=== PATIENT | female | born 1950 | race Caucasian/White ===

== ENCOUNTER 2021-03-14 07:23 | Day surgery (SDC) | payer MEDICARE, BC, SELFPAY ==
--- NOTE | 2021-03-14 07:47 | W.ANESPRE ---
General Info Date of Service Date Performed: 03/14/21 Height: 5 ft 6 in Weight: 102.058 kg Body Mass Index (BMI): 36.3 Surgical Procedure: Operation Date: 03/14/21 09:10 Proposed Procedures Side Surgeon p Cataract Extraction with IOL Implant Right Jason Orosco MD Meds Allergies and Home Medications Allergies Allergy/AdvReac Type Severity Reaction Status Date / Time aspirin Allergy Intermediate Skin Rash Unverified 03/12/21 11:53 codeine AdvReac Intermediate Nausea Unverified 03/12/21 11:53 fentanyl AdvReac Intermediate Other (See Unverified 03/12/21 11:53 Comment) hydromorphone [From Dilaudid] AdvReac Intermediate Other (See Unverified 03/12/21 11:53 Comment) morphine AdvReac Intermediate Other (See Unverified 03/12/21 11:53 Comment) Home Medication Medication Instructions Recorded cyanocobalamin (vitamin B-12) 1,000 mcg PO DAILY 03/12/21 [Vitamin B-12] esomeprazole magnesium 40 mg PO QAM 03/12/21 hydroxychloroquine 400 mg PO DAILY 03/12/21 leflunomide 20 mg PO HS 03/12/21 lorazepam 0.5 mg PO DAILY PRN 03/12/21 metoprolol succinate 12.5 mg PO DAILY 03/12/21 naloxone [Narcan] 1 spray INTRANASAL DIRECTED PRN 03/12/21 Current Visit Medications: Current Medications Generic Name Dose Route Start Last Admin Trade Name Freq PRN Reason Stop Dose Admin Acetaminophen 1,000 mg 03/14/21 06:00 Acetaminophen 500 Mg Tab PO Q4H PRN PRN Miscellaneous Medication 0 ml 03/14/21 06:00 Prednisolone 1%, Moxifloxacin 0.5%, Nepafenac 0.1% 5ml Btl OD DIRECTED KELLI Miscellaneous Medication 0 ml 03/14/21 06:00 Tropicam./Phenyleph. (1/2.5%) 5 Ml Btl OD DIRECTED KELLI Tetracaine HCl 0 ml 03/14/21 06:00 Tetracaine 0.5% 4 Ml Btl OD DIRECTED KELLI PFSH Active Problems Active Problems: Problem Status Onset Code Nuclear sclerotic cataract of left eye H25.12 Medical History Medical History (Updated 03/14/21 @ 07:12 by Jason Orosco MD) Anxiety Compression fracture of lumbosacral spine Depressive disorder Family history of neoplasm of breast Gastroesophageal reflux disease without esophagitis Herniated disc History of hysteroscopy Hyperlipidemia Hypertensive disorder IBS (irritable bowel syndrome) Osteoarthritis Osteoporosis Polycythemia vera pt. denies this Prediabetes Primary malignant neoplasm of kidney Rheumatoid arthritis Sarcomatoid renal cell carcinoma Surgical History Surgical History H/O tubal ligation H/O umbilical hernia repair History of esophagogastroduodenoscopy (EGD) History of kyphoplasty History of nephrectomy, left Hx of carpal tunnel repair Hx of oophorectomy right Hx of tonsillectomy Tobacco Smoking/Tobacco Use Status: Former Tobacco Use Alcohol Alcohol Intake: current Alcohol intake frequency: a few times a month Alcohol type: wine Substance Use Substance use type: does not use Vital Signs and Lab Results Lab Results Blood Type / Crossmatch: No Data to Display Complete Blood Count: No Data to Display Complete Metabolic Panel: No Data to Display Liver Function Panel: No Data to Display Coagulation Panel: No Data to Display Cardiac Panel: No Data to Display Arterial Blood Gas: No Data to Display Venous Blood Gas: No Data to Display Pancreas Panel: No Data to Display Thyroid Panel: No Data to Display Infectious Disease: No Data to Display Blood Cultures: No Data to Display Toxicology Panel: No Data to Display
[2021-03-14] MEDS: Tropicam./Phenyleph. (1/2.5%) 5 ML BTL OD ×3 (07:50→08:02)
[2021-03-14 07:58] VITALS: BP 152/96; PULSE 81; RESP 20; TEMP 36.5; O2SAT 96
--- NOTE | 2021-03-14 08:01 | W.ANESPRE ---
General Info Date of Service Date Performed: 03/14/21 Height: 5 ft 6 in Weight: 104.5 kg Body Mass Index (BMI): 37.1 Surgical Procedure: Operation Date: 03/14/21 09:10 Proposed Procedures Side Surgeon p Cataract Extraction with IOL Implant Right Jason Orosco MD Meds Allergies and Home Medications Allergies Allergy/AdvReac Type Severity Reaction Status Date / Time aspirin Allergy Intermediate Skin Rash Unverified 03/14/21 07:55 codeine AdvReac Intermediate Nausea Unverified 03/14/21 07:55 fentanyl AdvReac Intermediate Other (See Unverified 03/14/21 07:55 Comment) hydromorphone [From Dilaudid] AdvReac Intermediate Other (See Unverified 03/14/21 07:55 Comment) morphine AdvReac Intermediate Other (See Unverified 03/14/21 07:55 Comment) Home Medication Medication Instructions Recorded cyanocobalamin (vitamin B-12) 1,000 mcg PO DAILY 03/12/21 [Vitamin B-12] esomeprazole magnesium 40 mg PO QAM 03/12/21 hydroxychloroquine 400 mg PO DAILY 03/12/21 leflunomide 20 mg PO HS 03/12/21 lorazepam 0.5 mg PO DAILY PRN 03/12/21 metoprolol succinate 12.5 mg PO DAILY 03/12/21 naloxone [Narcan] 1 spray INTRANASAL DIRECTED PRN 03/12/21 Current Visit Medications: Current Medications Generic Name Dose Route Start Last Admin Trade Name Freq PRN Reason Stop Dose Admin Acetaminophen 1,000 mg 03/14/21 06:00 Acetaminophen 500 Mg Tab PO Q4H PRN PRN Miscellaneous Medication 0 ml 03/14/21 06:00 Prednisolone 1%, Moxifloxacin 0.5%, Nepafenac 0.1% 5ml Btl OD DIRECTED KELLI Miscellaneous Medication 0 ml 03/14/21 06:00 03/14/21 07:55 Tropicam./Phenyleph. (1/2.5%) 5 Ml Btl OD 1 drp DIRECTED KELLI Administration Tetracaine HCl 0 ml 03/14/21 06:00 Tetracaine 0.5% 4 Ml Btl OD DIRECTED KELLI PFSH Active Problems Active Problems: Problem Status Onset Code Nuclear sclerotic cataract of left eye H25.12 Medical History Medical History Anxiety Compression fracture of lumbosacral spine Depressive disorder Family history of neoplasm of breast Gastroesophageal reflux disease without esophagitis Herniated disc History of hysteroscopy Hyperlipidemia Hypertensive disorder IBS (irritable bowel syndrome) Osteoarthritis Osteoporosis Polycythemia vera pt. denies this Prediabetes Primary malignant neoplasm of kidney Rheumatoid arthritis Sarcomatoid renal cell carcinoma Surgical History Surgical History H/O tubal ligation H/O umbilical hernia repair History of esophagogastroduodenoscopy (EGD) History of kyphoplasty History of nephrectomy, left Hx of carpal tunnel repair Hx of oophorectomy right Hx of tonsillectomy Tobacco Smoking/Tobacco Use Status: Former Tobacco Use Alcohol Alcohol Intake: current Alcohol intake frequency: a few times a month Alcohol type: wine Substance Use Substance use: Never Substance use type: does not use Details: alcohol: t-1, couple drinks Vital Signs and Lab Results Vital Signs Most Recent Vital Signs in EMR: Most Recent Vital Signs Temp Pulse Resp BP Pulse Ox 36.5 C 81 20 152/96 H 96 03/14/21 07:58 03/14/21 07:58 03/14/21 07:58 03/14/21 07:58 03/14/21 07:58 Lab Results Blood Type / Crossmatch: No Data to Display Complete Blood Count: No Data to Display Complete Metabolic Panel: No Data to Display Liver Function Panel: No Data to Display Coagulation Panel: No Data to Display Cardiac Panel: No Data to Display Arterial Blood Gas: No Data to Display Venous Blood Gas: No Data to Display Pancreas Panel: No Data to Display Thyroid Panel: No Data to Display Infectious Disease: No Data to Display Blood Cultures: No Data to Display Toxicology Panel: No Data to Display Anesthesia Assessment and Plan Anesthesia History Personal History: No History of Anesthesia Complications Family History: No Family History of Anesthesia Complications Exercise Tolerance Exercise Tolerance: Metabolic Equivalents>4 Pertinent Negatives Pertinent Negatives: No Symptoms of GERD (Well controlled), No Major Cardiovascular Symptoms or Complaints and No Major Pulmonary Symptoms or Complaints Cardiac & Pulmonary Exam Cardiac Exam: Normal S1/S2 Heart Sounds Pulmonary Exam: Clear Bilateral Breath Sounds Airway Exam Known Difficult Airway: No Mallampati Class: 3 Mouth Opening: Narrow (< 3cm) Thyromental Distance: Greater than 3 cm Neck Range of Motion: Full ROM Neck Circumference: Normal Teeth Condition: Normal Dentition ASA Classification ASA Score: ASA 2 Emergency Case?: No NPO Status NPO Status: NPO Clears >2 hours, Solids >8 hours Anesthesia Plan Resuscitation Status: Full Code Anesthesia Technique: MAC Anesthesia Airway Planned: Natural Airway Monitors Used: Standard Monitors
[2021-03-14 08:04] VITALS: BMI 37.1
[2021-03-14] MEDS: Tetracaine 0.5% 4 ML BTL OD (08:56)
[2021-03-14] MEDS: Balanced Salt Soln.-PLUS 500 ML BAG (09:02)
[2021-03-14] MEDS: Duovisc Viscoelastic System EACH 1 EACH (09:02)
[2021-03-14] MEDS: Lidocaine 2% Jelly 6 ML SYR (09:03)
[2021-03-14] MEDS: Lidocaine 1% Pres-Free 5 ML VIAL (09:03)
[2021-03-14] MEDS: Povidone-Iodine Ophth 30 ML BTL (09:10)
--- NOTE | 2021-03-14 09:31 | PDOC.DSDIS_ITS ---
Discharge Plan Disposition Patient Disposition: HOME Condition: Good Discharge Details Attending Provider: Jason Orosco Primary Care Provider: Terese Tee Home Meds and New Rx's Prescriptions: No Action leflunomide 20 mg Tablet 20 mg PO HS RF: 0 lorazepam 0.5 mg Tablet 0.5 mg PO DAILY PRNRF: 0 esomeprazole magnesium 40 mg Capsule,Delayed Release(Dr/Ec) 40 mg PO QAM RF: 0 metoprolol succinate 25 mg Tablet Extended Release 24 Hr 12.5 mg PO DAILY RF: 0 hydroxychloroquine 200 mg Tablet 400 mg PO DAILY RF: 0 Narcan 4 mg/actuation [place],Non-Aerosol 1 spray INTRANASAL DIRECTED PRNRF: 0 cyanocobalamin (vitamin B-12) [Vitamin B-12] 1,000 mcg Tablet 1,000 mcg PO DAILY RF: 0 Discharge Instructions Stand Alone Forms: Post-op Topical Cataract, Ju Ganey (DSU) Discharge Orders Discharge Orders: Discharge Order (Routine); Ordered 03/14/21 Ordered By: Jason Orosco DS: Diagnosis Discharge Diagnosis (1) Nuclear sclerotic cataract of left eye: Status: Resolved
[2021-03-14 09:32] VITALS: BP 146/95; PULSE 80; RESP 16; TEMP 36; O2SAT 99
--- NOTE | 2021-03-14 09:32 | ROE_ITS ---
Date of service: 03/14/21 Time of Service: 09:32 Operative Note Operative Note DATE OF PROCEDURE: 03/14/21 PRE-OP DIAGNOSIS: Nuclear cataract, right eye POST-OP DIAGNOSIS: same PROCEDURE: Cataract extraction using phacoemulsification with intraocular lens implant, right eye SURGEON: Jason Orosco ANESTHESIA TYPE: Local By Surgeon and MAC Refer to Anesthesia Record ESTIMATED BLOOD LOSS: 0 PATHOLOGY: none sent COMPLICATIONS: None Patient was transported to: same day Patient's condition: stable Implants: [employer] / [employer] Tecnis [id number] intraocular lens Indications: Progressive decreased vision due to cataract, right eye Procedure Description: CATARACT SURGERY OPERATIVE REPORT PREOPERATIVE DIAGNOSIS: Nuclear cataract, right eye POSTOPERATIVE DIAGNOSIS: Same OPERATION: Cataract extraction using phacoemulsification with posterior chamber intraocular lens implant, right eye. IOL: IOL Group Billing Coordinator/Model: [employer] / [employer]OR Tecnis ZCB00 IOL Power: + 26.0 diopters IOL Serial Number: [id number] Optic Diameter: 6.0mm Haptic/Overall Diameter: 13.0mm PHACO INFO: Bryan Zabu Stud[employer]ion Vision System with OZil and [employer] Cumulative Dispersed Energy (CDE): 5.91 seconds SURGEON: Jason Orosco MD, AMADOR ANESTHESIA: Monitored Anesthesia Care (MAC), with local sub-tenon's anesthetic infiltration COMPLICATIONS: None SPECIMENS: None INDICATIONS FOR PROCEDURE: The patient is a 71-year-old lady with history of diminished visual acuity in her right eyes secondary to the development of significant nuclear cataract. The option of cataract surgery was offered to the patient and she wished to proceed. PROCEDURE: The correct surgical eye was identified and marked as the right eye and the pupil was dilated in the preoperative area using mydriatics and cyclople gics. The dilated pupil size was 7.0 mm. She elected to proceed without oral sedation.. The patient was brought to the operating room where cardiopulmonary monitoring was instituted and surgical time-out was performed, confirming the correct operative eye and IOL power. Topical anesthesia was administered and ophthalmic povidone-iodine 5% was instilled into the conjunctival fornices. Lidocaine gel was applied to the cornea and the david-ocular area was prepped with Betadine 10% solution and draped in the usual sterile fashion for intraocular surgery, including an aperture drape. A Tegaderm transparent film dressing was cut in half and used to cover the lashes and lid margins. Care was taken to sequester the lashes and lid margins under the Tegaderm dressing. A lid speculum was placed between the lids of the operative eye and the Marissa-Jamel operating microscope was maneuvered into position. You scissors were then used to make a conjunctival buttonhole approximately 6mm posterior to the limbus in the inferonasal quadrant. Blunt dissection was carried out to expose bare sclera, and a blunt-tipped sub-tenon?s anesthesia cannula was introduced and passed posteriorly along the globe where non- preserved plain lidocaine was injected into posterior sub-Tenon?s space. A sideport knife was used to make a paracentesis port inferiortemporally. Intraocular phenylephrine/lidocaine was injected into the anterior chamber. The anterior chamber was then filled with viscoelastic. A 2.4mm keratome knife was used to create a half-thickness groove at the limbus and then to construct a three-plane near-clear corneal tunnel extending 2.0mm into clear cornea in the superiortemporal position. . A flap was raised on the anterior capsule and capsulorhexis forceps were used to complete a continuous curvilinear capsulorhexis of 5.0 mm. Balanced salt solution was then used to perform cortical cleaving hydrodissection and nuclear hydrodelineation until the lens could be freely ro tated within the capsular bag. The lens nucleus was then disassembled and removed within the capsular bag and iris plane using phacoemulsification. Residual cortical material was removed using the I/A handpiece. The posterior capsule was carefully polished to remove as much residual lens epithelial cells as safely possible. The capsular bag was then inflated and the anterior chamber deepened with viscoelastic. The lens implant described above was inserted into the capsular bag using the SALVADOR [place] Injector. A Kuglen hook was used to dial the IOL into position. Residual viscoelastic was then removed first from posterior to the IOL, then from the anterior chamber using the I/A handpiece. The lens implant was noted to center nicely within the capsular bag. The incisions were stromally hydrated, and the anterior chamber was reformed using BSS. Then 0.5cc of moxifloxacin 1.0mg/ml were injected into the capsular bag and anterior chamber. The incisions were checked with a Weck spear and found to be secure. She had a fairly significant subconjunctival hemorrhage inferiorly and nasally from the sub-tenon's lidocaine injection. Several drops of ophthalmic povidone-iodine 5% were then applied to the eye followed by two drops of Imprimis combination prednisolone/moxifloxacin/nepafenac solution. The drapes were removed and a clear plastic protective eye shield was placed over the eye. The patient was then returned to Same Day Surgery in stable condition.
--- NOTE | 2021-03-14 10:00 | W.ANESPOSTOP ---
Postoperative Evaluation Date, Time and Location Date Performed: 03/14/21 Time Performed: 09:33 Patient Location: Day Surgery Unit Vital Signs Most Recent Imported Vital Signs: Most Recent Vital Signs Temp Pulse Resp BP Pulse Ox 36 C L 80 16 146/95 H 99 03/14/21 09:32 03/14/21 09:32 03/14/21 09:32 03/14/21 09:32 03/14/21 09:32 Pain Score Most Recent Pain Score: Most Recent Pain Score Pain Level 4 03/14/21 09:32 Assessment Mental Status: Awake (Alert & Oriented to Patient Baseline) Airway and Respiratory Function: Patent airway with normal (patient baseline) respiratory exam Cardiovascular Function: Hemodynamically Stable Hydration Status: Adequately Hydrated Nausea & Vomiting: No Nausea or Vomiting Pain: Pain is tolerable per patient (Dr. Orosco aware and patient states discomfort is improving. ) Peripheral Nerve Block: Patient did not receive a nerve block Teaching Patient Teaching: Discussed Safe Use of Pain Medication Given Recent Anesthesia
== END 2021-03-14 09:54 | disposition home or self-care (01) ==
PROVIDERS: PCP Internal Medicine; Visit Provider Ophthalmology
PROC: (CPT 66984; principal; 2021-03-14 09:00)
DX: H25.12 Age-related nuclear cataract, left eye (principal); I10 Essential (primary) hypertension; E78.5 Hyperlipidemia, unspecified; R73.03 Prediabetes
CPT/HCPCS: 66984; V2632

== ENCOUNTER 2021-03-28 05:59 | Day surgery (SDC) | payer MEDICARE, BC, SELFPAY ==
[2021-03-28 06:30] VITALS: BP 138/89; PULSE 80; RESP 16; TEMP 36.4; O2SAT 99
[2021-03-28] MEDS: Tropicam./Phenyleph. (1/2.5%) 5 ML BTL OS ×3 (06:36→06:48)
--- NOTE | 2021-03-28 07:06 | W.ANESPRE ---
General Info Date of Service Date Performed: 03/28/21 Height: 5 ft 6 in Weight: 103.6 kg Body Mass Index (BMI): 36.8 Surgical Procedure: Operation Date: 03/28/21 07:40 Proposed Procedures Side Surgeon p Cataract Extraction with IOL Implant Left Jason Orosco MD Meds Allergies and Home Medications Allergies Allergy/AdvReac Type Severity Reaction Status Date / Time aspirin Allergy Intermediate Skin Rash Unverified 03/28/21 06:26 codeine AdvReac Intermediate Nausea Unverified 03/28/21 06:26 fentanyl AdvReac Intermediate Other (See Unverified 03/28/21 06:26 Comment) hydromorphone [From Dilaudid] AdvReac Intermediate Other (See Unverified 03/28/21 06:26 Comment) morphine AdvReac Intermediate Other (See Unverified 03/28/21 06:26 Comment) Home Medication Medication Instructions Recorded cyanocobalamin (vitamin B-12) 1,000 mcg PO DAILY 03/12/21 [Vitamin B-12] esomeprazole magnesium 40 mg PO QAM 03/12/21 hydroxychloroquine 400 mg PO DAILY 03/12/21 leflunomide 20 mg PO HS 03/12/21 lorazepam 0.5 mg PO DAILY PRN 03/12/21 metoprolol succinate 12.5 mg PO DAILY 03/12/21 naloxone [Narcan] 1 spray INTRANASAL DIRECTED PRN 03/12/21 Current Visit Medications: Current Medications Generic Name Dose Route Start Last Admin Trade Name Freq PRN Reason Stop Dose Admin Acetaminophen 1,000 mg 03/28/21 06:00 Acetaminophen 500 Mg Tab PO Q4H PRN PRN Miscellaneous Medication 0 ml 03/28/21 06:00 Prednisolone 1%, Moxifloxacin 0.5%, Nepafenac 0.1% 5ml Btl OS DIRECTED KELLI Miscellaneous Medication 0 ml 03/28/21 06:00 03/28/21 06:48 Tropicam./Phenyleph. (1/2.5%) 5 Ml Btl OS 1 drp DIRECTED KELLI Administration Tetracaine HCl 0 ml 03/28/21 06:00 Tetracaine 0.5% 4 Ml Btl OS DIRECTED KELLI PFSH Active Problems Active Problems: Problem Status Onset Code Nuclear sclerotic cataract of left eye H25.12 Nuclear sclerotic cataract of right eye H25.11 Medical History Medical History Anxiety Compression fracture of lumbosacral spine Depressive disorder Family history of neoplasm of breast Gastroesophageal reflux disease without esophagitis Herniated disc Hyperlipidemia Hypertensive disorder IBS (irritable bowel syndrome) Osteoarthritis Osteoporosis Polycythemia vera pt. denies this Prediabetes Primary malignant neoplasm of kidney Rheumatoid arthritis Sarcomatoid renal cell carcinoma Surgical History Surgical History (Updated 03/28/21 @ 06:26 by Claudine Merchant) H/O tubal ligation H/O umbilical hernia repair History of esophagogastroduodenoscopy (EGD) History of hysteroscopy History of kyphoplasty History of nephrectomy, left Hx of carpal tunnel repair Hx of cataract surgery Hx of oophorectomy right Hx of tonsillectomy Tobacco Smoking/Tobacco Use Status: Former Tobacco Use Alcohol Alcohol Intake: current Alcohol intake frequency: a few times a month Alcohol type: wine Substance Use Substance use: Never Substance use type: does not use Vital Signs and Lab Results Vital Signs Most Recent Vital Signs in EMR: Most Recent Vital Signs Temp Pulse Resp BP Pulse Ox 36.4 C L 80 16 138/89 99 03/28/21 06:30 03/28/21 06:30 03/28/21 06:30 03/28/21 06:30 03/28/21 06:30 Lab Results Blood Type / Crossmatch: No Data to Display Complete Blood Count: No Data to Display Complete Metabolic Panel: No Data to Display Liver Function Panel: No Data to Display Coagulation Panel: No Data to Display Cardiac Panel: No Data to Display Arterial Blood Gas: No Data to Display Venous Blood Gas: No Data to Display Pancreas Panel: No Data to Display Thyroid Panel: No Data to Display Infectious Disease: No Data to Display Blood Cultures: No Data to Display Toxicology Panel: No Data to Display Anesthesia Assessment and Plan Anesthesia History Personal History: No History of Anesthesia Complications Family History: No Family History of Anesthesia Complications Exercise Tolerance Exercise Tolerance: Metabolic Equivalents>4 Pertinent Negatives Pertinent Negatives: No Symptoms of GERD Cardiac & Pulmonary Exam Cardiac Exam: Normal S1/S2 Heart Sounds Pulmonary Exam: Clear Bilateral Breath Sounds Airway Exam Known Difficult Airway: No Mallampati Class: 3 Mouth Opening: Narrow (< 3cm) Thyromental Distance: Greater than 3 cm Neck Range of Motion: Full ROM Neck Circumference: Normal Teeth Condition: Normal Dentition ASA Classification ASA Score: ASA 2 Emergency Case?: No NPO Status NPO Status: NPO Clears >2 hours, Solids >8 hours Anesthesia Plan Resuscitation Status: Full Code Anesthesia Technique: MAC Anesthesia Airway Planned: Natural Airway Monitors Used: Standard Monitors
[2021-03-28 07:24] VITALS: BMI 36.8
[2021-03-28] MEDS: Lidocaine 2% Jelly 6 ML SYR (07:28)
[2021-03-28] MEDS: Tetracaine 0.5% 4 ML BTL OS (07:28)
[2021-03-28] MEDS: Povidone-Iodine Ophth 30 ML BTL (07:28)
[2021-03-28] MEDS: Lidocaine 1% Pres-Free 5 ML VIAL (07:32)
[2021-03-28] MEDS: Duovisc Viscoelastic System EACH 1 EACH (07:32)
[2021-03-28] MEDS: Balanced Salt Soln.-PLUS 500 ML BAG (07:32)
--- NOTE | 2021-03-28 07:54 | W.ANESPOSTOP ---
Postoperative Evaluation Date, Time and Location Date Performed: 03/28/21 Time Performed: 08:00 Patient Location: Day Surgery Unit Vital Signs Most Recent Imported Vital Signs: Most Recent Vital Signs Temp Pulse Resp BP Pulse Ox 36.4 C L 80 16 138/89 99 03/28/21 06:30 03/28/21 06:30 03/28/21 06:30 03/28/21 06:30 03/28/21 06:30 Most Recent Manually Entered Vital Signs: Adult Blood Pressure: 140/89 Heart Rate: 79 Respirations: 16 Oxygen Saturation (%): 98 Temperature (C): 36.6 C Pain Score (0-10 Scale): 0 Pain Score Most Recent Pain Score: Most Recent Pain Score Pain Level 0 03/28/21 06:30 Assessment Mental Status: Awake (Alert & Oriented to Patient Baseline) Airway and Respiratory Function: Patent airway with normal (patient baseline) respiratory exam Cardiovascular Function: Hemodynamically Stable Hydration Status: Adequately Hydrated Nausea & Vomiting: No Nausea or Vomiting Pain: Pt. Denies Any Pain Peripheral Nerve Block: Other (Local by Dr. Orosco)
[2021-03-28 07:57] VITALS: BP 140/89; PULSE 80; RESP 16; TEMP 36.3; O2SAT 98
--- NOTE | 2021-03-28 07:59 | W.PM.DSUDISC ---
Discharge Plan Disposition Patient Disposition: HOME Condition: Good Discharge Details Attending Provider: Jason Orosco Primary Care Provider: Terese Tee Home Meds and New Rx's Prescriptions: No Action leflunomide 20 mg Tablet 20 mg PO HS RF: 0 lorazepam 0.5 mg Tablet 0.5 mg PO DAILY PRNRF: 0 esomeprazole magnesium 40 mg Capsule,Delayed Release(Dr/Ec) 40 mg PO QAM RF: 0 metoprolol succinate 25 mg Tablet Extended Release 24 Hr 12.5 mg PO DAILY RF: 0 hydroxychloroquine 200 mg Tablet 400 mg PO DAILY RF: 0 Narcan 4 mg/actuation [place],Non-Aerosol 1 spray INTRANASAL DIRECTED PRNRF: 0 cyanocobalamin (vitamin B-12) [Vitamin B-12] 1,000 mcg Tablet 1,000 mcg PO DAILY RF: 0 Discharge Instructions Stand Alone Forms: Post-op Topical Cataract, Ju [place] (DSU) Discharge Orders Discharge Orders: Discharge Order (Routine); Ordered 03/28/21 Ordered By: Jason Orosco DS: Diagnosis Discharge Diagnosis (1) Nuclear sclerotic cataract of left eye: Status: Resolved
[2021-03-28 08:00] VITALS: BP 140/89; PULSE 79; RESP 16; TEMPC 36.6; O2SAT 98
--- NOTE | 2021-03-28 08:01 | ROE_ITS ---
Date of service: 03/28/21 Time of Service: 08:01 Operative Note Operative Note DATE OF PROCEDURE: 03/28/21 PRE-OP DIAGNOSIS: Nuclear cataract, left eye POST-OP DIAGNOSIS: same PROCEDURE: Cataract extraction using phacoemulsification with intraocular lens implant, left eye SURGEON: Jason Orosco ANESTHESIA TYPE: Local By Surgeon and MAC Refer to Anesthesia Record PATHOLOGY: none sent COMPLICATIONS: None Patient was transported to: same day Patient's condition: stable Implants: [employer] / [employer] Tecnis ZCB00 Indications: Progressive decreased vision due to cataract, left eye Procedure Description: CATARACT SURGERY OPERATIVE REPORT PREOPERATIVE DIAGNOSIS: Nuclear cataract, left eye POSTOPERATIVE DIAGNOSIS: Same OPERATION: Cataract extraction using phacoemulsification with posterior chamber intraocular lens implant, left eye. IOL: IOL Casting Director/Model: [employer] / [employer] [id number] IOL Power: +26.0 diopters IOL Serial Number: [id number] Optic Diameter: 6.0mm Haptic/Overall Diameter: 13.0mm PHACO INFO: [employer] Vision System with OZil and [employer] Cumulative Dispersed Energy (CDE): 12.66 seconds SURGEON: Jason Orosco MD, AMADOR ANESTHESIA: Monitored Anesthesia Care (MAC), with local sub-tenon's anesthetic infiltration COMPLICATIONS: None SPECIMENS: None INDICATIONS FOR PROCEDURE: The patient is a 71-year-old lady with history of diminished visual acuity in both eyes secondary to the development of bilateral nuclear cataract. She has already undergone cataract surgery in her right eye and is doing well postoperatively. She now presents for cataract surgery in the left eye. PROCEDURE: The correct surgical eye was identified and marked as the left eye and the pupil was dilated in the preoperative area using mydriatics and cyclople gics. The dilated pupil size was 7.0 mm. Oral sedation was administered in the form of an Imprimis MKO Melt (midazolam 3mg/ketamine 25mg/ondansetron 2mg). The patient was brought to the operating room where cardiopulmonary monitoring was instituted and surgical time-out was performed, confirming the correct operative eye and IOL power. Topical anesthesia was administered and ophthalmic povidone-iodine 5% was instilled into the conjunctival fornices. Lidocaine gel was applied to the cornea and the david-ocular area was prepped with Betadine 10% solution and draped in the usual sterile fashion for intraocular surgery, including an aperture drape. A Tegaderm transparent film dressing was cut in half and used to cover the lashes and lid margins. Care was taken to sequester the lashes and lid margins under the Tegaderm dressing. A lid speculum was placed between the lids of the operative eye and the Marissa-Jamel operating microscope was maneuvered into position. You scissors were then used to make a conjunctival buttonhole approximately 6mm posterior to the limbus in the inferonasal quadrant. Blunt dissection was carried out to expose bare sclera, and a blunt-tipped sub-tenon?s anesthesia cannula was introduced and passed posteriorly along the globe where non- preserved plain lidocaine was injected into posterior sub-Tenon?s space. A sideport knife was used to make a paracentesis port superior/superiortemporally. Intraocular phenylephrine/lidocaine was injected into the anterior chamber. The anterior chamber was then filled with viscoelastic. A 2.4mm keratome knife was used to create a half-thickness groove at the limbus and then to construct a three-plane near-clear corneal tunnel extending 2.0mm into clear cornea in the temporal position. . A flap was raised on the anterior capsule and capsulorhexis forceps were used to complete a continuous curvilinear capsulorhexis of 5.5 mm. Balanced salt solution was then used to perform cortical cleaving hydrodissect ion and nuclear hydrodelineation until the lens could be freely rotated within the capsular bag. The lens nucleus was then disassembled and removed within the capsular bag and iris plane using phacoemulsification. Residual cortical material was removed using the 45-degree angled silicone I/A tip with 0.3mm port. The posterior capsule was carefully polished to remove as much residual lens epithelial cells as safely possible. The capsular bag was then inflated and the anterior chamber deepened with viscoelastic. The lens implant described above was inserted into the capsular bag using the SAL[employer]OR [place] Injector. A Kuglen hook was used to dial the IOL into position. Residual viscoelastic was then removed first from posterior to the IOL, then from the anterior chamber using the I/A handpiece. The lens implant was noted to center nicely within the capsular bag. The incisions were stromally hydrated, and the anterior chamber was reformed using BSS. Then 0.5cc of moxifloxacin 1.0mg/ml were injected into the capsular bag and anterior chamber. The incisions were checked with a Weck spear and found to be secure. Several drops of ophthalmic povidone-iodine 5% were then applied to the eye followed by two drops of Imprimis combination prednisolone/moxifloxacin/nepafenac solution. The drapes were removed and a clear plastic protective eye shield was placed over the eye. The patient was then returned to [facility] in stable condition.
== END 2021-03-28 08:45 | disposition home or self-care (01) ==
PROVIDERS: PCP Internal Medicine; Visit Provider Ophthalmology
PROC: (CPT 66984; principal; 2021-03-28 07:30)
DX: H25.12 Age-related nuclear cataract, left eye (principal); I10 Essential (primary) hypertension; K21.9 Gastro-esophageal reflux disease without esophagitis
CPT/HCPCS: 66984; V2632

== ENCOUNTER 2025-03-16 10:44 | Outpatient (CLI) | payer MEDICARE, SELFPAY ==
--- NOTE | 2025-03-16 11:00 | RT.EKG_ITS ---
APPROVED REPORT Exam: Resting ECG Reason for Exam: baseline Patient Location: O HR:87 bpm ECG Measurements Heart Rate 87 AXIS AZ 175 P -19 QRSd 91 QRS -32 QT 363 T 56 QTc 437 Conclusion Sinus rhythm...normal P axis, V-rate 50- 99 Left anterior fascicular block, late transition
== END 2025-03-16 10:45 | disposition home or self-care (01) ==
LOC: DI.CARD 11:06
PROVIDERS: PCP Internal Medicine; Referring Provider Internal Medicine; Visit Provider Internal Medicine Cardiovascular Disease
DX: I42.9 Cardiomyopathy, unspecified (principal); I44.4 Left anterior fascicular block
CPT/HCPCS: 93010

== ENCOUNTER → 2025-03-16 10:44 | Outpatient (BNVA) | payer MEDICARE, SELFPAY | PROVIDERS: PCP Internal Medicine; Referring Provider Internal Medicine; Visit Provider Internal Medicine Cardiovascular Disease | DX: R00.2 Palpitations (principal); I42.9 Cardiomyopathy, unspecified; R06.09 Other forms of dyspnea; R53.81 Other malaise; F41.9 Anxiety disorder, unspecified | CPT/HCPCS: 99203; 93005 ==